=== PATIENT | male | born 1965 | race Caucasian/White ===

== ENCOUNTER 2020-02-19 12:59 | Emergency (ER) | payer OTHER, SELFPAY ==
[2020-02-19] VITALS (20 sets, daily range): BP systolic 142–190; BP diastolic 97–111; PULSE 70–94; RESP 5–20; TEMP 36.6; O2SAT 95–100
--- NOTE | ~2020-02-19 | XR_ITS ---
EXAMINATION: XR chest 2V DATE: 02/19/2020 13:56 INDICATION: Shortness of breath TECHNIQUE: AP and lateral views of the chest are obtained. COMPARISON: 08/11/2014 FINDINGS: The lungs are free of acute opacities. There is no pleural effusion or pneumothorax. The ca rdiomediastinal silhouette is normal. There is mild thoracic spondylosis. Electronic leads project in the central spinal canal of the lower thoracic spine. IMPRESSION: 1. No acute cardiopulmonary abnormality. Reviewed, dictated and finalized at location B.
--- NOTE | 2020-02-19 13:20 | ECG_ITS ---
Measurements Intervals [place] Rate: 85 P: 12 MD: 135 QRS: 58 QRSD: 94 T: 47 QT: 339 QTc: 404 Interpretive Statements SINUS RHYTHM BASELINE ARTIFACT- I, II, III, AVR, AVL, AVF, V1-V6 BORDERLINE ECG Electronically Signed On 02-19-2020 15:50:24 CDT by Armond Kruger D.O.
[2020-02-19 13:33] LABS: Basophils Percent Auto 0.7 % (0.2-1.2); Eosinophils Absolute Auto 0.2 K/mm3 (0-0.3); Eosinophils Percent Auto 3.4 % (0-4.4); Hematocrit 44.6 % (42.0-52.0); Hemoglobin 16.2 g/dL (14.0-18.0); Immature Granulocyte Absolute 0.02 K/mm3 (0.00-0.031); Immature Granulocyte Percent A 0.4 % (0-0.5); Lymphocytes Absolute Auto 1.52 K/mm3 (0.9-3.2); Lymphocytes Percent Auto 27.1 % (18.3-44.2); Mean Corpuscular HGB Conc 36.3 g/dl (32-36); Mean Corpuscular Hemoglobin 33.8 pg (26-34); Mean Corpuscular Volume 92.9 fl (80-100); Monocytes Absolute Auto 0.5 K/mm3 (0.1-0.6); Monocytes Percent Auto 9.5 % (2.6-8.5); Neutrophils Absolute Auto 3.3 K/mm3 (1.3-6.7); Neutrophils Percent Auto 58.9 % (45.5-73.1); Platelet Count Result 223 k/mm3 (150-375); Red Cell Distribution Width 12.4 % (11.5-14.5); White Blood Count 5.6 K/mm3 (4.5-10.0)
[2020-02-19 13:48] LABS: Anion Gap 7 mmol/L (8-16); Blood Urea Nitrogen 16 mg/dL (9-20); Calcium 9.2 mg/dL (8.4-10.2); Carbon Dioxide 22 mmol/L (22-30); Chloride 108 mmol/L (98-107); Estimated CRCL calculation 119 ml/min; Estimated Glomerular Filt Rate > 60; Glucose 104 mg/dL (75-110); Potassium 3.8 mmol/L (3.4-5.0); Sodium 137 mmol/L (137-145)
--- NOTE | 2020-02-19 14:10 | ED.SOB ---
HPI - SOB/Dyspnea General Chief Complaint: Shortness of Breath/Dyspnea Stated Complaint: Trouble breathing Time Seen by Provider: 02/19/20 13:44 Source: patient Mode of arrival: ambulatory Limitations: no limitations History of Present Illness HPI Narrative: This patietn is a 55 year old male with history of asthma and hypertension who presents for evaluation of shortness of breath. He states he has been having difficulty breathing since yesterday. He states he feels like he can not get a full breath. He has been using his rescue inhaler without relief. He has a mild nonproductive cough. He also has mild dizziness. He denies chest pain, fever, chills, nausea or vomiting. Related Data Home Medications Medication Instructions Recorded Confirmed albuterol sulfate INHALATION 02/19/20 fluticasone propion-salmeterol inh INHALATION 02/19/20 hydrochlorothiazide 02/19/20 levetiracetam PO 02/19/20 losartan 02/19/20 montelukast mg 02/19/20 omeprazole 02/19/20 simvastatin mg 02/19/20 Allergies Allergy/AdvReac Type Severity Reaction Status Date / Time cephalexin Allergy Severe Nausea and Verified 02/19/20 13:38 Vomiting diphenhydramine AdvReac Unknown Unknown Unverified 02/19/20 13:38 milk and eggs tested Allergy Unknown Unknown Uncoded 02/19/20 13:38 positive. but patient eats them Review of Systems Review of Systems: All systems reviewed & are unremarkable except as noted in HPI and below Constitutional: Constitutional: Denies chills and Denies fever(s) Cardiovascular: Cardiovascular: Denies chest pain and Denies radiating jaw, neck or arm pain Respiratory: Respiratory: Reports cough, Reports dyspnea and Denies wheezing Gastrointestinal: Gastrointestinal: Denies abdominal pain, Denies diarrhea, Denies nausea and Denies vomiting Genitourinary: Genitourinary: Denies hematuria and Denies oliguria [facility] Past Medical History Medical History (Updated 02/19/20 @ 16:37 by Carmela Valdez MD) Asthma Hyperlipidemia Hypertension Surgical History Surgical History (Updated 02/19/20 @ 14:15 by Carmela Valdez MD) No significant past surgical history Social History Social History (Updated 02/19/20 @ 14:15 by Carmela Valdez MD) Alcohol intake: current Substance use type: marijuana Exam Const: General: alert Nutritional Appearance: obese Orientation/consciousness: patient oriented x3 HENMT: Head: normocephalic and atraumatic Face and sinus: face symmetric Mouth: Yes Normal oral and palatal mucosa present and Yes lip normal Eyes: Pupils: Equal, round and reactive pupils present EOM: EOMs intact bilaterally Chest: Chest palpation & inspection: normal inspection of the chest Resp: Effort & Inspection: not labored, no retractions, tachypneic and no use of accessory muscles Auscultation: clear to auscultation bilaterally, no rales and no wheezes Other: able to speak in complete sentences Cardio: Rate: regular rate Rhythm: regular rhythm Heart sounds: no murmurs GI: Inspection: distended GI Palp: Yes Soft to palpation, No Tenderness to palpation present (GI) and No Guarding due to palpation present (GI) Skin: General skin exam: normal color Rashes: no rashes Neuro: General: patient oriented x3 and moves all extremities Course Reevaluation(s) Reevaluation #1: Patient states he feels much better. I Discussed evaluation was unremarkable. He may have been having a panic attack Date: 02/19/20 Time: 16:35 Vital Signs Vital signs: Vital Signs Pulse Rate 86 02/19/20 13:19 Respiratory Rate 13 02/19/20 13:19 Pulse Oximetry 98 02/19/20 13:19 Temperature 97.9 F 02/19/20 13:30 Pulse Rate 73 02/19/20 16:15 Respiratory Rate 11 L 02/19/20 16:00 Blood Pressure 142/98 H 02/19/20 15:41 Pulse Oximetry 96 02/19/20 16:15 MDM - SOB/Dyspnea Lab Data Attestation: I reviewed the patient's lab results. Result diagrams: 02/19/20 13:2
[2020-02-19 14:38] LABS: Alveolar/Arterial O2 Gradient 17.3 mmHg; Base Excess ABG 1.6 mEq/l (+/-2.0); Carboxyhemoglobin 0.7 % THb (0-2.0); Fractional Inspired Oxygen 21 %; HCO3 ABG 21.9 mEq/l (22.0-26.0); Methemoglobin ABG 0.3 %THb (0-1.5); Modified Allen's Test Pass; Oxygen Content ABG 22.7 %vol (16.0-22.0); Oxygen Saturation ABG 98.4 % (95.0-100.0); Oxyhemoglobin 97.2 % THb (90.0-100.0); PCO2 ABG 25.2 mmHg (35.0-45.0); PO2 ABG 102.3 mmHg (80.0-100.0); PO2 FiO2 Ratio Arterial Blood 4.87 %; Reduced Hemoglobin 1.8 %THb (0-5.0); Site Drawn LEFT RADIAL; Total Hemoglobin 16.6 g/dL (12.0-18.0); pH ABG 7.557 (7.350-7.450)
[2020-02-19 14:39] LABS: Device ROOM AIR
--- NOTE | 2020-02-19 15:56 | PC.NURSE ---
called ben at lab to add on ddimer, pt/ptt and baseline
[2020-02-19 16:09] LABS: Prothrombin Time 12.4 Seconds (11.1-14.7)
[2020-02-19 16:10] LABS: Partial Thromboplastin Time 27.9 SECONDS (22.3-36.8)
[2020-02-19 16:12] LABS: D Dimer 0.32 ug/mL (<0.48)
[2020-02-19 16:27] LABS: Troponin I < 0.012 ng/mL (0.000-0.034)
== END 2020-02-19 16:53 | disposition home or self-care (01) ==
PROVIDERS: Emergency Medicine; Emergency Provider General Practice; PCP Family Medicine
DX: J45.909 Unspecified asthma, uncomplicated (principal); I10 Essential (primary) hypertension; E78.5 Hyperlipidemia, unspecified; R94.31 Abnormal electrocardiogram [ECG] [EKG]
CPT/HCPCS: 36415; 36600; 71046; 80048; 82375; 82805; 83050; 84484; 85025; 85380; 85610; 85730; 93005; 99284

== ENCOUNTER 2020-05-06 12:30 | Outpatient (CLI) | payer OTHER, SELFPAY ==
--- NOTE | 2020-05-06 | ECHO_ITS ---
Patient Info Name: Lane Ge Age: 55 years : 1965 Gender: Male Ht: 72 in Wt: 300 lbs BSA: 2.69 m2 HR: 95 bpm BP: 140 / 81 mmHg Heart Rhythm: Sinus Arrhythmia, Sinus Rhythm Technical Quality: Good Exam Date: 05/06/2020 12:57 PM Exam Location: [facility] Patient Status: Outpatient Admit Date: 05/06/2020 Staff Ordering Physician: PHYSICIAN NOT ON STAFF, NONSTAFF Hvac Estimator: Giuliano Lynne RDCS Attending Provider: PHYSICIAN NOT ON STAFF, NONSTAFF Exam Type: CA echo doppler color flow Study Info Indications R06.00 - Dyspnea, unspecified Complete two-dimensional, color flow and Doppler transthoracic echocardiogram is performed. Strain analysis performed. History/Risk Factors Dyspnea, HTN, family hx of CAD, palpitations. Summary 1. Complete two-dimensional, color flow and Doppler transthoracic echocardiogram is performed. 2. Strain analysis performed. 3. Left ventricular chamber dimension is normal. 4. Left ventricular systolic function is normal, estimated at 65-70%. 5. There is moderately increased left ventricular wall thickness. 6. The left ventricular diastolic function is grade I diastolic dysfunction. 7. Global longitudinal strain is abnormal at -14 %. 8. There is mild mitral valve regurgitation. Left Ventricle Left ventricular chamber dimension is normal. Left ventricular systolic function is normal, estimated at 65-70%. There is moderately increased left ventricular wall thickness. The left ventricular diastolic function is grade I diastolic dysfunction. Global longitudinal strain is abnormal at -14 %. Right Ventricle Right ventricular chamber dimension is normal. Right ventricular systolic function is normal. Left Atria Left atrial chamber dimension is normal. Right Atria Right atrial chamber dimension is normal. Atrial Septum Intact interatrial septum visualized by color flow imaging. Aortic Valve The aortic valve is trileaflet. There is mild aortic valve sclerosis. There is no aortic valve stenosis. There is trace aortic valve regurgitation. Pulmonic Valve The pulmonic valve is normal. There is no pulmonic valve stenosis. There is trace pulmonic regurgitation. Mitral Valve The mitral valve has normal leaflets. There is no mitral valve stenosis. There is mild mitral valve regurgitation. Tricuspid Valve The tricuspid valve leaflets are normal. There is no significant tricuspid valve stenosis. There is trace tricuspid valve regurgitation. Pericardium/Pleural The pericardium appears normal. There is no pericardial effusion. Inferior Vena Cava Normal inferior vena cava with >50% collapse upon inspiration consistent with normal right atrial pressure, 5 mmHg. Aorta The aortic root size at the sinus of Valsalva is normal. Left Ventricular Outflow Tract Name Value Normal LVOT 2D LVOT Diameter 1.9 cm LVOT Doppler LVOT Peak Gradient 6 mmHg LVOT Mean Gradient 4 mmHg LVOT VTI 22 cm LVOT VTI/AV VTI Ratio
== END 2020-05-06 12:31 | disposition home or self-care (01) ==
LOC: ANHCARD 12:32
PROVIDERS: PCP Family Medicine
DX: R06.00 Dyspnea, unspecified (principal)
CPT/HCPCS: 93306

== ENCOUNTER 2020-05-11 21:07 | Emergency (ER) | payer OTHER, SELFPAY ==
[2020-05-11] VITALS (8 sets, daily range): BP systolic 148–188; BP diastolic 78–112; PULSE 70–106; RESP 12–19; TEMP 36.8; O2SAT 96–99
--- NOTE | ~2020-05-11 | XR_ITS ---
EXAMINATION: XR chest 1V portable DATE: 05/11/2020 22:09 INDICATION: Shortness of breath, diarrhea, runny nose and 2 days of cough. TECHNIQUE: frontal view of the chest was obtained. COMPARISON: Chest radiograph dated 02/19/2020 FINDINGS: The lungs remain clear with no focal airspace opacities, pulmonary edema, pleural effusion or pneumot horax. The cardiomediastinal silhouette is normal. Final stimulator leads project over the lower thor ic central canal. IMPRESSION: 1. No acute cardiopulmonary disease. Reviewed, dictated and finalized at location A. ICIDE SPRAYER
--- NOTE | 2020-05-11 21:21 | ECG_ITS ---
Measurements Intervals [place] Rate: 91 P: 56 GA: 145 QRS: 54 QRSD: 92 T: 55 QT: 328 QTc: 405 Interpretive Statements SINUS RHYTHM NORMAL ECG Electronically Signed On 05-12-2020 7:00:53 POWER MANAGER by Armond Kruger D.O.
[2020-05-11 21:33] LABS: Basophils Absolute Auto 0.1 K/mm3 (0.0-0.1); Basophils Percent Auto 0.8 % (0.2-1.2); Eosinophils Absolute Auto 0.2 K/mm3 (0-0.3); Eosinophils Percent Auto 2.3 % (0-4.4); Hematocrit 45.9 % (42.0-52.0); Hemoglobin 16.4 g/dL (14.0-18.0); Immature Granulocyte Absolute 0.01 K/mm3 (0.00-0.031); Immature Granulocyte Percent A 0.2 % (0-0.5); Lymphocytes Absolute Auto 1.72 K/mm3 (0.9-3.2); Lymphocytes Percent Auto 26.9 % (18.3-44.2); Mean Corpuscular HGB Conc 35.7 g/dl (32-36); Mean Corpuscular Hemoglobin 33.6 pg (26-34); Mean Corpuscular Volume 94.1 fl (80-100); Mean Platelet Volume 9.9 fl (7.4-10.4); Monocytes Absolute Auto 0.7 K/mm3 (0.1-0.6); Monocytes Percent Auto 11.4 % (2.6-8.5); Neutrophils Absolute Auto 3.7 K/mm3 (1.3-6.7); Neutrophils Percent Auto 58.4 % (45.5-73.1); Platelet Count Result 238 k/mm3 (150-375); Red Blood Count 4.88 M/mm3 (4.6-6.20); Red Cell Distribution Width 12.5 % (11.5-14.5); White Blood Count 6.4 K/mm3 (4.5-10.0)
--- NOTE | 2020-05-11 21:37 | ED.GENADULT ---
HPI - General Adult General Chief complaint: Shortness of Breath/Dyspnea Stated complaint: SOB Time Seen by Provider: 05/11/20 21:10 Source: patient History of Present Illness HPI narrative: Patient is a 55 y/o male complaining of moderate SOB since yesterday. There no alleviating or exacerbating factor. He has some cough and diarrhea. He has no fever. He states that he was exposed to someone with COVID recently. Related Data Home Medications Medication Instructions Recorded Confirmed albuterol sulfate INHALATION 02/19/20 fluticasone propion-salmeterol inh INHALATION 02/19/20 hydrochlorothiazide 02/19/20 levetiracetam PO 02/19/20 losartan 02/19/20 montelukast mg 02/19/20 omeprazole 02/19/20 simvastatin mg 02/19/20 Allergies Allergy/AdvReac Type Severity Reaction Status Date / Time cephalexin Allergy Severe Nausea and Verified 05/11/20 21:19 Vomiting diphenhydramine AdvReac Unknown Unknown Unverified 05/11/20 21:19 milk and eggs tested Allergy Unknown Unknown Uncoded 05/11/20 21:19 positive. but patient eats them Review of Systems Constitutional: Constitutional: Denies chills, Denies fever(s), Denies headache(s) and Denies weakness Eyes: Eyes: Denies blurry vision ENT: Denies headache(s) and Denies neck pain Cardiovascular: Cardiovascular: Denies chest pain and Reports dyspnea Respiratory: Respiratory: Reports cough and Reports dyspnea Gastrointestinal: Gastrointestinal: Denies abdominal pain, Reports diarrhea, Denies nausea and Denies vomiting Genitourinary: Genitourinary: Denies hematuria and Denies dysuria Musculoskeletal: Musculoskeletal: Denies back pain and Denies neck pain Neurologic: Denies headache(s) and Denies weakness PMFSH Past Medical History Medical History Asthma Hyperlipidemia Hypertension Surgical History Surgical History No significant past surgical history Social History Social History Alcohol intake: current Substance use type: marijuana Gender identity (if verbalized by the patient): Male Sexual Orientation (if Verbalized by the Patient): Straight or Heterosexual Exam Const: General: no acute distress and well developed Orientation/consciousness: oriented to person, oriented to place, oriented to time and patient oriented x3 HENMT: Head: normocephalic Ears: external ears normal General nose exam: Normal external nose present Eyes: General: appearance normal, both eyes and all related structures Conjunctivae: conjunctivae normal Neck: Neck: normal visual inspection and full ROM Chest: Chest palpation & inspection: normal inspection of the chest and no tenderness Resp: Effort & Inspection: normal respiratory effort Auscultation: clear to auscultation bilaterally Cardio: Rate: tachycardic Rhythm: regular rhythm GI: GI Palp: No abdominal tenderness and Yes Soft to palpation Skin: General skin exam: normal color and turgor normal Neuro: General: oriented to person, oriented to place, oriented to time and patient oriented x3 Cognition (Neuro): normal cognition Extrem: General: normal to inspection, full ROM and no pedal edema Psych: Appearance: grossly normal Mental Status: mental status grossly normal Affect: Anxious affect present Course Vital Signs Vital signs: Vital Signs Pulse Rate 101 H 05/11/20 21:13 Respiratory Rate 12 05/11/20 21:13 Pulse Oximetry 97 05/11/20 21:13 Temperature 36.8 C 05/11/20 21:17 Pulse Rate 70 05/11/20 22:57 Respiratory Rate 18 05/11/20 22:57 Blood Pressure 148/78 H 05/11/20 22:57 Pulse Oximetry 99 05/11/20 22:57 Medical Decision Making Vital Signs Vital Signs: Vital Signs Pulse Rate 101 H 05/11/20 21:13 Respiratory Rate 12 05/11/20 21:13 Pulse Oximetry 97 05/11/20 21:13 Temperature
[2020-05-11] MEDS: LORazepam (*CRX) 1 MG TABLET PO (22:19)
[2020-05-11 22:40] LABS: Alanine Aminotransferase 41 U/L (4-50); Albumin Level 4.2 g/dL (3.5-5.1); Alkaline Phosphatase 82 U/L (38-126); Anion Gap 9 mmol/L (8-16); Aspartate Amino Transferase 39 U/L (17-59); Bilirubin,Total 0.5 mg/dL (0.2-1.3); Blood Urea Nitrogen 17 mg/dL (9-20); Calcium 9.9 mg/dL (8.4-10.2); Carbon Dioxide 26 mmol/L (22-30); Chloride 103 mmol/L (98-107); Estimated CRCL calculation 119 ml/min; Estimated Glomerular Filt Rate > 60; Glucose 109 mg/dL (75-110); Potassium 3.7 mmol/L (3.4-5.0); Sodium 138 mmol/L (137-145)
[2020-05-11 22:52] LABS: NT Pro B Type Natriuretic Pept 133 PG/ML (5-100); Troponin I < 0.012 ng/mL (0.000-0.034)
[2020-05-12 19:16] LABS: SARS-CoV-2 RNA PCR Negative
== END 2020-05-11 23:01 | disposition home or self-care (01) ==
PROVIDERS: Emergency Provider Emergency Medicine; PCP Family Medicine
DX: R06.02 Shortness of breath (principal); I10 Essential (primary) hypertension; F41.9 Anxiety disorder, unspecified; Z20.828 Contact with and (suspected) exposure to other viral communicable diseases; E78.5 Hyperlipidemia, unspecified; J45.909 Unspecified asthma, uncomplicated
CPT/HCPCS: 36415; 71045; 80053; 83880; 84484; 85025; 87635; 93005; 99284; A9270; C9803; U0003

== ENCOUNTER 2020-05-24 01:13 | Emergency (ER) | payer OTHER, SELFPAY ==
--- NOTE | ~2020-05-24 | XR_ITS ---
EXAMINATION: XR chest 1V portable DATE: 05/24/2020 02:09 INDICATION: Dyspnea. TECHNIQUE: frontal view of the chest was obtained. COMPARISON: Chest radiograph dated 05/11/2020 FINDINGS: The lungs remain clear with no focal airspace opacities, pulmonary edema, pleural effusion or pneumot horax. The cardiomediastinal silhouette is normal. Spinal stimulator leads project over the lower tho racic central canal. IMPRESSION: 1. No acute cardiopulmonary disease. Reviewed, dictated and finalized at location A. LIFE ENFORCEMENT MAJOR
[2020-05-24 01:16] VITALS: BP 159/97; PULSE 96; RESP 16; TEMP 36.3; O2SAT 99
--- NOTE | 2020-05-24 01:19 | ED.SOB ---
HPI - SOB/Dyspnea General Chief Complaint: Shortness of Breath/Dyspnea Stated Complaint: SOB Time Seen by Provider: 05/24/20 01:19 Source: patient Mode of arrival: ambulatory Limitations: no limitations History of Present Illness HPI Narrative: Patient is a 55-year-old with a history of obstructive sleep apnea, hypertension, asthma who presents for evaluation of shortness of breath. Patient states he has had increased shortness of breath over the past several weeks. He states it feels consistent with his asthma and like he has fluid at the top of his lungs, but patient states he has had multiple visits to this emergency department as well as other facilities with negative work-up and was discharged home. He denies any chest pain. He denies any leg swelling or calf pain. He denies any history of blood clot. He denies fever or chills. Patient states he feels his symptoms are worse when he is laying flat. Patient has a history of obstructive sleep apnea but does not have a CPAP. He tried a nebulizer treatment at home without much improvement in his symptoms. Patient states his anxiety does often make him feel short of breath but he is taking buspirone and states he does not feel anxious at this moment. Patient with recent negative Covid swab. Related Data Home Medications Medication Instructions Recorded Confirmed albuterol sulfate INHALATION 02/19/20 fluticasone propion-salmeterol inh INHALATION 02/19/20 hydrochlorothiazide 02/19/20 levetiracetam PO 02/19/20 losartan 02/19/20 montelukast mg 02/19/20 omeprazole 02/19/20 simvastatin mg 02/19/20 Allergies Allergy/AdvReac Type Severity Reaction Status Date / Time cephalexin Allergy Severe Nausea and Verified 05/24/20 02:23 Vomiting diphenhydramine AdvReac Unknown Unknown Verified 05/24/20 02:23 milk and eggs tested Allergy Unknown Unknown Uncoded 05/11/20 21:19 positive. but patient eats them Review of Systems Review of Systems: Narrative: CONSTITUTIONAL: Denies fever, chills, or sweats. EYES: Denies visual changes, redness, or discharge. ENT: Denies rhinorrhea, congestion, sore throat, or otalgia. CARDIOVASCULAR: Denies chest pain, palpitations, or edema. RESPIRATORY: Reports dry cough and shortness of breath GASTROINTESTINAL: Denies abdominal pain, nausea, vomiting, or diarrhea. GENITOURINARY: Denies dysuria or hematuria. SKIN: Denies rash or itching. MUSCULOSKELETAL: Denies back pain, joint pain, or myalgia. NEUROLOGIC: Denies headache, numbness, or weakness. PSYCHIATRIC: Reports anxiety PMFSH Past Medical History Medical History (Updated 05/24/20 @ 02:47 by Valery Murillo MD) Asthma Hyperlipidemia Hypertension Obstructive sleep apnea Surgical History Surgical History No significant past surgical history Social History Social History Alcohol intake: current Substance use type: marijuana Gender identity (if verbalized by the patient): Male Exam Narrative: Exam Narrative: GENERAL: Awake, alert, conversant, anxious appearing HEAD: Normocephalic, atraumatic. EYES: PERRLA and EOMI. ENT: Nares clear, no rhinorrhea or epistaxis. Mucous membranes moist. NECK: Supple. CHEST: No respiratory distress, breathing even and non labored, no crackles, no wheezing, full aeration at the bases, patient able to speak in full sentences without difficulty. No chest wall tenderness. HEART: Regular rate, sinus rhythm ABDOMEN:Non distended, non tender EXTREMITIES: Normal range of motion. No edema. SKIN: Warm, dry, no rash. NEURO:No focal deficits. Alert and oriented x3 Course Vital Signs Vital signs: Vital Signs Temperature 36.3 C L 05/24/20 01:16 Pulse Rate 96 05/24/20 01:16 Respiratory Rate 16 05/24/20 01:16 Blood Pressure 159/97 H 05/24/20 01:16 Pulse Oximetry 99 05/24/20 01:16 Temperature 36.3 C L 1
--- NOTE | 2020-05-24 01:51 | ECG_ITS ---
Measurements Intervals [place] Rate: 79 P: 15 SD: 128 QRS: 56 QRSD: 102 T: 50 QT: 352 QTc: 405 Interpretive Statements SINUS RHYTHM NORMAL ECG Electronically Signed On 05-24-2020 9:25:53 PROTECTION CONSULTANT by Armond Kruger D.O.
[2020-05-24 02:32] LABS: Basophils Percent Auto 0.6 % (0.2-1.2); Eosinophils Absolute Auto 0.1 K/mm3 (0-0.3); Eosinophils Percent Auto 1.9 % (0-4.4); Hematocrit 45.7 % (42.0-52.0); Hemoglobin 16.8 g/dL (14.0-18.0); Immature Granulocyte Absolute 0.02 K/mm3 (0.00-0.031); Immature Granulocyte Percent A 0.3 % (0-0.5); Lymphocytes Absolute Auto 1.51 K/mm3 (0.9-3.2); Lymphocytes Percent Auto 21.5 % (18.3-44.2); Mean Corpuscular HGB Conc 36.8 g/dl (32-36); Mean Corpuscular Hemoglobin 34.1 pg (26-34); Mean Corpuscular Volume 92.7 fl (80-100); Mean Platelet Volume 9.9 fl (7.4-10.4); Monocytes Absolute Auto 0.7 K/mm3 (0.1-0.6); Monocytes Percent Auto 9.3 % (2.6-8.5); Neutrophils Absolute Auto 4.7 K/mm3 (1.3-6.7); Neutrophils Percent Auto 66.4 % (45.5-73.1); Platelet Count Result 248 k/mm3 (150-375); Red Blood Count 4.93 M/mm3 (4.6-6.20); Red Cell Distribution Width 12.6 % (11.5-14.5)
[2020-05-24 02:37] LABS: INR 0.9; Prothrombin Time 12.6 Seconds (11.1-14.7)
[2020-05-24 02:38] LABS: Partial Thromboplastin Time 28.5 SECONDS (22.3-36.8)
[2020-05-24 02:40] LABS: D Dimer 0.41 ug/mL (<0.48)
[2020-05-24] MEDS: LORazepam (*CRX) 0.5 MG TABLET PO (02:40)
[2020-05-24 02:50] VITALS: PULSE 90; RESP 20
[2020-05-24] MEDS: IPRATROPIUM BR 0.02% INH SOLN 0.5 MG/2.5 ML VIAL INHALATION (03:00)
[2020-05-24] MEDS: ALBUTEROL SULFATE NEB 2.5 MG/0.5 ML INH 5 MG INHALATION (03:00)
[2020-05-24 03:02] VITALS: PULSE 92; RESP 20
[2020-05-24 03:24] LABS: Alveolar/Arterial O2 Gradient 25.6 mmHg; Base Excess ABG 2.5 mEq/l (+/-2.0); Carboxyhemoglobin 0.8 % THb (0-2.0); Fractional Inspired Oxygen 21 %; HCO3 ABG 22.3 mEq/l (22.0-26.0); Methemoglobin ABG 0.3 %THb (0-1.5); Oxygen Content ABG 23.2 %vol (16.0-22.0); Oxygen Saturation ABG 98.2 % (95.0-100.0); PCO2 ABG 24.3 mmHg (35.0-45.0); PO2 FiO2 Ratio Arterial Blood 4.52 %; Reduced Hemoglobin 1.9 %THb (0-5.0)
[2020-05-24 03:25] LABS: Device ROOM AIR; Modified Allen's Test Pass; Site Drawn RIGHT RADIAL
[2020-05-24 04:12] VITALS: BP 155/104; PULSE 91; RESP 16; O2SAT 97
[2020-05-24 04:33] LABS: Anion Gap 7 mmol/L (8-16); Blood Urea Nitrogen 17 mg/dL (9-20); Calcium 9.4 mg/dL (8.4-10.2); Carbon Dioxide 26 mmol/L (22-30); Chloride 108 mmol/L (98-107); Estimated CRCL calculation 99 ml/min; Estimated Glomerular Filt Rate > 60; Glucose 117 mg/dL (75-110); Potassium 3.5 mmol/L (3.4-5.0); Sodium 141 mmol/L (137-145)
[2020-05-24 04:45] LABS: NT Pro B Type Natriuretic Pept 268 PG/ML (5-100); Troponin I < 0.012 ng/mL (0.000-0.034)
[2020-05-24 05:16] VITALS: BP 154/97; PULSE 93; RESP 13; O2SAT 99
== END 2020-05-24 05:21 | disposition home or self-care (01) ==
PROVIDERS: Emergency Provider Emergency Medicine; PCP Family Medicine
DX: R06.00 Dyspnea, unspecified (principal); J45.909 Unspecified asthma, uncomplicated; G47.33 Obstructive sleep apnea (adult) (pediatric); I10 Essential (primary) hypertension; F41.9 Anxiety disorder, unspecified; E78.5 Hyperlipidemia, unspecified
CPT/HCPCS: 36415; 36600; 71045; 80048; 82375; 82805; 83050; 83880; 84484; 85025; 85380; 85610; 85730; 93005; 94640; 99284; A9270

== ENCOUNTER 2020-05-29 09:50 | Outpatient (CLI) | payer OTHER, SELFPAY ==
--- NOTE | 2020-05-29 | EST_ITS ---
Patient Info Name: Lane Ge Age: 55 years : 1965 Gender: Male Ht: 72 in Wt: 305 lbs BSA: 2.71 m2 Exam Date: 05/29/2020 10:57 AM Exam Location: [facility] Stress Patient Status: Outpatient Admit Date: 05/29/2020 Staff Ordering Physician: LEAH ESCOBAR MD Attending Provider: LEAH ESCOBAR MD Exercise Technologist: Cintia Randhawa CT Exercise Physician: Armond Kruger DO Exam Type: CA stress ky w NM Study Info Indications R06.09 - Other forms of dyspnea A regadenoson stress test was performed. Summary 1. 1. Abnormal lexiscan stress test for ischemic ST changes by ECG criteria. 2. 2. Stable hemodynamics throughout the test. 3. 3. Nuclear scan to follow and will be reported separately. Please correlate with it. 4. 4. Patient informed of the above results. Protocol: Lexiscan Stress ECG Details Stage: REST Duration (min): 6 min : 1 sec HR (bpm): 83 SBP (mmHg): 146 DBP (mmHg): 95 Stage: STAGE 1 Duration (min): 0 min : 59 sec HR (bpm): 93 SBP (mmHg): 135 DBP (mmHg): 97 Stage: RECOVERY Duration (min): 1 min : 0 sec HR (bpm): 112 SBP (mmHg): 135 DBP (mmHg): 97 Stage: RECOVERY Duration (min): 2 min : 0 sec HR (bpm): 108 SBP (mmHg): 135 DBP (mmHg): 97 Stage: RECOVERY Duration (min): 3 min : 0 sec HR (bpm): 104 SBP (mmHg): 123 DBP (mmHg): 93 Stage: RECOVERY Duration (min): 4 min : 0 sec HR (bpm): 105 SBP (mmHg): 118 DBP (mmHg): 89 Stage: RECOVERY Duration (min): 4 min : 49 sec HR (bpm): 110 SBP (mmHg): 136 DBP (mmHg): 89 Rest HR: 83 bpm Peak HR: 117 bpm Rest Sys BP: 146 mmHg Peak Sys BP: 136 mmHg Max Pred HR: 167 bpm % Max Pred HR: 70 % Target HR: 142 bpm Max RPP: 15,912 bpm*mmHg Termination Reason: Completed protocol Cardiac Symptoms: Shortness of breath Total Time: 1 min : 0 sec Rest [place] BP: 95 mmHg Peak [place] BP: 89 mmHg Total Dose: 0.4 mg Resting ECG Sinus rhythm, borderline T wave in high lateral leads. Stress ECG [address] depression in II, III, avF, V5-V6. Arrhythmias None. Report Signatures
--- NOTE | ~2020-05-29 | NM_ITS ---
EXAMINATION: NM [place] stress w perfusion DATE: 05/29/2020 12:52 INDICATION: Dyspnea on exertion. TECHNIQUE: Rest images were obtained following intravenous administration of 11.9 mCi Tc99m tetrofosm in (Myoview). The patient was infused intravenously with Lexiscan (regadenoson). Then, 30.5 mCi Tc99m tetrofosmin (Myoview) was administered intravenously, and stress images were obtained. Data was vishnu nstructed into short axis and horizontal and vertical long axis SPECT images. Gated SPECT images were also obtained. COMPARISON: None. FINDINGS: There is no definite reversible or fixed perfusion abnormality to suggest ischemia or infar ction. There is no segmental wall motion abnormality. Left ventricular ejection fraction measures 7 0%. IMPRESSION: 1. No definite ischemia or infarct. 2. Normal left ventricular ejection fraction measuring 70%. Reviewed, dictated and finalized at location A. ER COVERSTITCH
== END 2020-05-29 09:51 | disposition home or self-care (01) ==
LOC: ANHCARD 09:59
PROVIDERS: PCP Family Medicine
DX: R06.00 Dyspnea, unspecified (principal)
CPT/HCPCS: 78452; 93017; A9502; J2785

== ENCOUNTER 2020-06-03 12:34 | Outpatient (CLI) | payer OTHER, SELFPAY ==
--- NOTE | 2020-06-08 13:01 | WPDPFTINT ---
PFT Interpretation PFT Interpretation: Full pulmonary function testing 06/03/2020 1. Flows and volumes appear satisfactory. 2. Following inhaled bronchodilator, there is little objective change. 3. Diffusing capacity appears normal. This appears to be normal pulmonary function testing. Trever Sánchez MD MScFACP FCCP
== END 2020-06-03 12:35 | disposition home or self-care (01) ==
PROVIDERS: PCP Family Medicine
DX: J45.40 Moderate persistent asthma, uncomplicated (principal)
CPT/HCPCS: 94060; 94726; 94729

== ENCOUNTER 2020-09-03 08:21 | Emergency (ER) | payer OTHER, SELFPAY ==
[2020-09-03] VITALS (19 sets, daily range): BP systolic 105–141; BP diastolic 78–112; PULSE 77–94; RESP 6–24; TEMP 36.9; O2SAT 97–98
--- NOTE | ~2020-09-03 | XR_ITS ---
EXAMINATION: XR chest 1V portable 09/03/2020 10:02 INDICATION: Cough with asthma. Shortness of breath. PROCEDURE: 2 view chest COMPARISON: Comparison to multiple prior studies sequentially, with oldest reviewed study dated 07/2014. FINDINGS: The lungs are clear. The cardiomediastinal silhouette is within normal limits. There are no pleural effusions. There is no pneumothorax suspected. Stable appearance to spinal stimulator le ads. IMPRESSION: 1: NO ACUTE CARDIOPULMONARY DISEASE. Reviewed, dictated and finalized at location A.
--- NOTE | 2020-09-03 08:41 | ECG_ITS ---
Measurements Intervals [place] Rate: 85 P: 8 [place]: 155 QRS: 20 QRSD: 101 T: 3 QT: 343 QTc: 409 Interpretive Statements SINUS RHYTHM ATRIAL PREMATURE COMPLEXES INFERIOR INFARCT, AGE INDETERMINATE BASELINE ARTIFACT- II, III, AVR, AVL,A VF ABNORMAL ECG Electronically Signed On 09-03-2020 9:31:18 CDT by Armond Kruger D.O.
--- NOTE | 2020-09-03 08:43 | ED.GENADULT ---
HPI - General Adult General Chief complaint: Shortness of Breath/Dyspnea Stated complaint: SOB Time Seen by Provider: 09/03/20 08:25 Source: RN notes reviewed History of Present Illness HPI narrative: Patient presents emergency department from home for shortness of breath. Patient states symptoms began approximately 5 hours ago. He states like he cannot take a deep breath patient states he does have a history of asthma and has an inhaler and is followed by pulmonary states he is also been told shortness of breath is contributed anxiety in the past he denies any fevers or chills chest pain abdominal pain nausea vomiting or any other symptoms Related Data Home Medications Medication Instructions Recorded Confirmed albuterol sulfate INHALATION 02/19/20 fluticasone propion-salmeterol inh INHALATION 02/19/20 hydrochlorothiazide 02/19/20 levetiracetam PO 02/19/20 losartan 02/19/20 montelukast mg 02/19/20 omeprazole 02/19/20 simvastatin mg 02/19/20 buspirone mg 09/03/20 lorazepam 09/03/20 tiotropium bromide [Spiriva with INHALATION 09/03/20 HandiHaler] Allergies Allergy/AdvReac Type Severity Reaction Status Date / Time cephalexin Allergy Severe Nausea and Verified 09/03/20 08:45 Vomiting diphenhydramine AdvReac Unknown Unknown Verified 09/03/20 08:45 milk and eggs tested Allergy Unknown Unknown Uncoded 09/03/20 08:45 positive. but patient eats them Review of Systems Review of Systems: Narrative: Gen.: Denies fevers or chills Eyes: Denies eye pain or visual change ENT: Denies congestion Respiratory: D see HPI CV: Denies chest pain or palpitations GI: Denies abdominal pain nausea, emesis or diarrhea Musculoskeletal: Denies back pain or muscle pain Neuro: Denies numbness, tingling, weakness or focal weakness Skin: Denies rash Except as documented, all other systems reviewed and negative [facility] Past Medical History Medical History Asthma Hyperlipidemia Hypertension Obstructive sleep apnea Surgical History Surgical History No significant past surgical history Social History Social History (Reviewed 09/03/20 @ 11:15 by SOFIA Estrada Alcohol intake: current Substance use type: marijuana Gender identity (if verbalized by the patient): Male Exam Narrative: Exam Narrative: APPEARANCE: Anxious in appearance, nontoxic, resting in bed EYES: EOMI HEENT: Normocephalic, atraumatic, OMM RESPIRATORY: No respiratory distress mild wheezing upper lung huang no rhonchi or rales CARDIOVASCULAR: Regular rate and rhythm without murmurs rubs or gallops. ABDOMINAL: Soft, nontender, nondistended, no rebound or guarding MUSCULOSKELETAl: Moves all extremities. No clubbing, cyanosis or edema. NEURO: Awake and alert. Following commands, speech normal, no focal deficits SKIN:: Warm, dry. No rashes lesions or abrasions PSYCHIATRIC: Anxious in appearance Course Course Emergency Course: Patient states he is feeling better following breathing treatments in ED Reviewed old records the patient has been seen for similar in ED in the past patient also is followed by pulmonary Walking pulse ox in ED with oxygen saturation staying in the upper 90s Discussed with patient results of workup and diagnosis. Discussed need for follow-up with primary care, proper use of medication, and reasons to return to the emergency department. Patient understands and agrees to current treatment plan Vital Signs Vital signs: Vital Signs Temperature 98.5 F 09/03/20 08:38 Pulse Rate 89 09/03/20 08:38 Respiratory Rate 24 H 09/03/20 08:38 Blood Pressure 131/91 H 09/03/20 08:38 Pulse Oximetry 98 09/03/20 08:38 Temperature 98.5 F 09/03/20 08:38 Pulse Rate 82 09/03/20 10:41 Respiratory Rate 18 09/03/20 10:41 Blood Pressure 115/79 09/03/20 10:31 Pulse Oximetry 97 09/03/20 10:3
[2020-09-03] MEDS: methylPREDNISolone SOD SUCC 125 MG VIAL IV PUSH (09:00)
[2020-09-03 09:02] LABS: Basophils Absolute Auto 0.1 K/mm3 (0.0-0.1); Basophils Percent Auto 0.8 % (0.2-1.2); Eosinophils Absolute Auto 0.1 K/mm3 (0-0.3); Eosinophils Percent Auto 1.6 % (0-4.4); Hematocrit 49.5 % (42.0-52.0); Hemoglobin 17.6 g/dL (14.0-18.0); Immature Granulocyte Absolute 0.02 K/mm3 (0.00-0.031); Immature Granulocyte Percent A 0.3 % (0-0.5); Lymphocytes Absolute Auto 2.37 K/mm3 (0.9-3.2); Lymphocytes Percent Auto 30.8 % (18.3-44.2); Mean Corpuscular HGB Conc 35.6 g/dl (32-36); Mean Corpuscular Hemoglobin 32.8 pg (26-34); Mean Corpuscular Volume 92.4 fl (80-100); Mean Platelet Volume 9.8 fl (7.4-10.4); Monocytes Absolute Auto 0.7 K/mm3 (0.1-0.6); Monocytes Percent Auto 9.6 % (2.6-8.5); Neutrophils Absolute Auto 4.4 K/mm3 (1.3-6.7); Neutrophils Percent Auto 56.9 % (45.5-73.1); Platelet Count Result 242 k/mm3 (150-375); Red Blood Count 5.36 M/mm3 (4.6-6.20); Red Cell Distribution Width 12.9 % (11.5-14.5); White Blood Count 7.7 K/mm3 (4.5-10.0)
[2020-09-03] MEDS: IPRATROPIUM BR 0.02% INH SOLN 0.5 MG/2.5 ML VIAL INHALATION ×2 (09:05→10:33)
[2020-09-03] MEDS: ALBUTEROL SULFATE NEB 2.5 MG/0.5 ML INH 5 MG INHALATION ×2 (09:05→10:33)
[2020-09-03 09:15] LABS: Anion Gap 8 mmol/L (8-16); Blood Urea Nitrogen 18 mg/dL (9-20); Calcium 9.5 mg/dL (8.4-10.2); Carbon Dioxide 23 mmol/L (22-30); Chloride 108 mmol/L (98-107); Estimated CRCL calculation 111 ml/min; Estimated Glomerular Filt Rate > 60; Glucose 96 mg/dL (75-110); Potassium 3.6 mmol/L (3.4-5.0); Sodium 139 mmol/L (137-145)
[2020-09-03 09:44] LABS: NT Pro B Type Natriuretic Pept 40 PG/ML (5-100)
[2020-09-03 09:45] LABS: Troponin I < 0.012 ng/mL (0.000-0.034)
--- NOTE | 2020-09-03 10:26 | PC.NURSE ---
Pt appears to breathe easier but when asked states nothing is helping .
[2020-09-03 11:00] LABS: D Dimer 0.27 ug/mL (<0.48)
--- NOTE | 2020-09-03 11:06 | PC.NURSE ---
Report to Thelma DIGGS RN, to continue care.
[2020-09-04 17:45] LABS: SARS-CoV-2 RNA PCR Negative
== END 2020-09-03 11:35 | disposition home or self-care (01) ==
PROVIDERS: Emergency Provider Emergency Medicine; PCP Family Medicine
DX: J45.901 Unspecified asthma with (acute) exacerbation (principal); E78.5 Hyperlipidemia, unspecified; I10 Essential (primary) hypertension; G47.33 Obstructive sleep apnea (adult) (pediatric); Z20.822 Contact with and (suspected) exposure to COVID-19
CPT/HCPCS: 36415; 71045; 80048; 83880; 84484; 85025; 85380; 93005; 94640; 96374; 99284; C9803; J2930; U0003; U0005

== ENCOUNTER 2020-11-04 03:05 | Observation (INO) | payer OTHER, SELFPAY ==
[2020-11-04] VITALS (12 sets, daily range): BP systolic 124–137; BP diastolic 71–97; PULSE 88–100; RESP 12–25; TEMP 36.1–36.3; O2SAT 97–99; BMI 41.3
--- NOTE | ~2020-11-04 | XR_ITS ---
EXAMINATION: XR chest 2V DATE: 11/04/2020 04:06 INDICATION: Shortness of breath TECHNIQUE: PA and lateral views of the chest are obtained. COMPARISON: 09/03/2020 FINDINGS: The lungs are free of acute opacities. There is no pleural effusion or pneumothorax. The ca rdiomediastinal silhouette is normal. There is mild thoracic spondylosis. Neurostimulator leads proje ct over the lower thoracic spine. IMPRESSION: 1. No acute cardiopulmonary abnormality. Reviewed, dictated and finalized at location A.
--- NOTE | 2020-11-04 03:15 | ECG_ITS ---
Measurements Intervals [place] Rate: 97 P: 55 MO: 134 QRS: 64 QRSD: 102 T: 22 QT: 335 QTc: 426 Interpretive Statements SINUS RHYTHM BORDERLINE ST-T WAVE ABNORMALITY- INFERIOR LEADS BASELINE ARTIFACT- I, II, III, AVR, AVL, AVF, V1-V6 BORDERLINE ECG Electronically Signed On 11-06-2020 9:47:19 CDT by Armond Kruger D.O.
--- NOTE | 2020-11-04 03:17 | PC.NURSE ---
Pt presents to ED with complaints of chest tightness and sob. Pt states he has treated with inhaler with no relief. Pt states I'm here every 2-3 months for the same exact thing. Pt states I fee like I can't get a good deep breath in. I feel like I'm suffocating . Pt denies pain at this time and is alert and oriented x4. Breathing is even and unlabored. Pt denies nvd, fever, and chills. EDMD presented to bedside and pt in no obvious distress at this time.
--- NOTE | 2020-11-04 03:21 | ED.SOB ---
HPI - SOB/Dyspnea General Chief Complaint: Shortness of Breath/Dyspnea Stated Complaint: sob for last 2 hours Time Seen by Provider: 11/04/20 03:19 Source: patient Mode of arrival: ambulatory Limitations: no limitations History of Present Illness HPI Narrative: Patient is a 55-year-old male complaining of shortness of breath accompanied by cough nonproductive that started tonight. Patient states that he has a history of asthma and feels like he is having a asthma attack . Patient claims that he is here every 2 to 3 months for the same complaints. Patient denies any chest pain, abdominal pain, nausea, vomiting, diaphoresis, fever or chills. Related Data Home Medications Medication Instructions Recorded Confirmed albuterol sulfate INHALATION 02/19/20 fluticasone propion-salmeterol inh INHALATION 02/19/20 hydrochlorothiazide 02/19/20 levetiracetam PO 02/19/20 losartan 02/19/20 montelukast mg 02/19/20 omeprazole 02/19/20 simvastatin mg 02/19/20 buspirone mg 09/03/20 lorazepam 09/03/20 tiotropium bromide [Spiriva with INHALATION 09/03/20 HandiHaler] Allergies Allergy/AdvReac Type Severity Reaction Status Date / Time cephalexin Allergy Severe Nausea and Verified 09/03/20 08:45 Vomiting diphenhydramine AdvReac Unknown Unknown Verified 09/03/20 08:45 milk and eggs tested Allergy Unknown Unknown Uncoded 09/03/20 08:45 positive. but patient eats them Review of Systems Review of Systems: All systems reviewed & are unremarkable except as noted in HPI and below Constitutional: Constitutional: Denies body ache(s), Denies chills, Denies excessive sweating, Denies fatigue, Denies fever(s), Denies headache(s), Denies lethargy, Denies malaise, Denies weakness and Denies weight loss Eyes: Eyes: Denies blurry vision, Denies change in vision and Denies loss of vision ENT: Denies dizziness, Denies ear discharge, Denies headache(s), Denies lip swelling, Denies epistaxis, Denies nasal congestion, Denies neck pain, Denies throat swelling and Denies tongue swelling Cardiovascular: Cardiovascular: Denies chest pain, Denies chest pain at rest, Denies chest pain with activity, Denies diaphoresis, Denies rapid heart rate, Denies edema, Denies irregular heart rhythm, Denies lightheadedness and Denies palpitations Respiratory: Respiratory: Denies chest congestion, Denies cough and Denies hemoptysis Gastrointestinal: Gastrointestinal: Denies abdominal pain, Denies melena, Denies hematochezia, Denies diarrhea, Denies nausea, Denies vomiting and Denies hematemesis Musculoskeletal: Musculoskeletal: Denies abnormal gait, Denies deformity, Denies joint swelling, Denies limited range of motion, Denies neck pain and Denies numbness Neurologic: Denies Abnormal speech present, Denies abnormal gait, Denies confusion, Denies dizziness, Denies headache(s), Denies focal weakness, Denies loss of vision, Denies numbness, Denies Other visual disturbances, Denies Sensory deficit (Neuro) and Denies weakness Psychiatric: Psychiatric: Denies confusion, Denies depression, Denies auditory hallucinations, Denies homicidal ideation and Denies suicidal ideation Endocrine: Endocrine: Denies cold intolerance, Denies excessive sweating, Denies fatigue, Denies heat intolerance and Denies palpitations Hematologic/Lymphatic: Hematologic/Lymphatic: Denies easy bleeding and Denies easy bruising Allergic/Immunologic: Allergic/Immunologic: Denies lip swelling, Denies throat swelling and Denies tongue swelling PMFSH Past Medical History Medical History Asthma Hyperlipidemia Hypertension Obstructive sleep apnea Surgical History Surgical History No significant past surgical history Social History Social History Alcohol intake: current Substance use type: marijuana Gender identit
--- NOTE | 2020-11-04 03:31 | PC.NURSE ---
Respiratory presented to bedside for treatment.
[2020-11-04 03:35] LABS: Basophils Percent Auto 0.6 % (0.2-1.2); Eosinophils Absolute Auto 0.2 K/mm3 (0-0.3); Eosinophils Percent Auto 2.9 % (0-4.4); Hematocrit 44.8 % (42.0-52.0); Hemoglobin 15.7 g/dL (14.0-18.0); Immature Granulocyte Absolute 0.02 K/mm3 (0.00-0.031); Immature Granulocyte Percent A 0.3 % (0-0.5); Lymphocytes Percent Auto 30.8 % (18.3-44.2); Mean Corpuscular Hemoglobin 33.1 pg (26-34); Mean Corpuscular Volume 94.5 fl (80-100); Mean Platelet Volume 10.3 fl (7.4-10.4); Monocytes Absolute Auto 0.6 K/mm3 (0.1-0.6); Monocytes Percent Auto 9.1 % (2.6-8.5); Neutrophils Absolute Auto 3.8 K/mm3 (1.3-6.7); Neutrophils Percent Auto 56.3 % (45.5-73.1); Platelet Count Result 226 k/mm3 (150-375); Red Blood Count 4.74 M/mm3 (4.6-6.20); Red Cell Distribution Width 13.3 % (11.5-14.5); White Blood Count 6.8 K/mm3 (4.5-10.0)
[2020-11-04 03:39] LABS: Alveolar/Arterial O2 Gradient 28.3 mmHg; Base Excess ABG 2.2 mEq/l (+/-2.0); Fractional Inspired Oxygen 21 %; HCO3 ABG 23.4 mEq/l (22.0-26.0); Oxygen Saturation ABG 97.6 % (95.0-100.0); Oxyhemoglobin 96.3 % THb (90.0-100.0); PCO2 ABG 28.3 mmHg (35.0-45.0); PO2 ABG 87.5 mmHg (80.0-100.0); PO2 FiO2 Ratio Arterial Blood 4.17 %; Total Hemoglobin 16.2 g/dL (12.0-18.0)
[2020-11-04 03:42] LABS: Device ROOM AIR; Modified Allen's Test Pass; Site Drawn RIGHT RADIAL; pH ABG 7.536 (7.350-7.450)
[2020-11-04] MEDS: ALBUTEROL SULFATE NEB 2.5 MG/0.5 ML INH 5 MG INHALATION ×3 (03:45→08:17)
[2020-11-04] MEDS: IPRATROPIUM BR 0.02% INH SOLN 0.5 MG/2.5 ML VIAL INHALATION ×3 (03:46→08:17)
[2020-11-04 03:47] LABS: INR 0.8; Prothrombin Time 12.1 Seconds (11.1-14.7)
[2020-11-04 03:48] LABS: Partial Thromboplastin Time 28.9 SECONDS (22.3-36.8)
[2020-11-04 03:50] LABS: D Dimer 0.33 ug/mL (<0.48)
[2020-11-04 04:02] LABS: NT Pro B Type Natriuretic Pept 38 pg/mL (5-100); Troponin I < 0.012 ng/mL (0.000-0.034)
[2020-11-04 04:05] LABS: Anion Gap 9 mmol/L (8-16); Blood Urea Nitrogen 18 mg/dL (9-20); Calcium 9.1 mg/dL (8.4-10.2); Carbon Dioxide 23 mmol/L (22-30); Chloride 111 mmol/L (98-107); Estimated CRCL calculation 122 ml/min; Estimated Glomerular Filt Rate > 60; Glucose 116 mg/dL (75-110); Potassium 3.9 mmol/L (3.4-5.0); Sodium 143 mmol/L (137-145)
[2020-11-04] MEDS: methylPREDNISolone SOD SUCC 125 MG VIAL IV PUSH (04:19)
--- NOTE | 2020-11-04 04:32 | PC.NURSE ---
EDMD presented to bedside to update pt on poc and all questions and concerns addressed. Pt states that he feels much better since medication administration and is now resting on cart in its lowest position with call button and personal items within reach. Pt advised to press call button for assistance.
--- NOTE | 2020-11-04 05:06 | PC.NURSE ---
Prior to administration of breathing treatment pt lungs sounds are clear and wheezing with expiration bilaterally. Pt remains alert and oriented dx4 with stable vitals and in no obvious distress at this time. Pt advised to press call button for assistance.
--- NOTE | 2020-11-04 05:31 | PC.NURSE ---
Report called to Andrea. Urbina to send pt to floor.
--- NOTE | 2020-11-04 05:57 | ADMGEN ---
This patient, Lane Ge, was admitted to [facility] Surg Room 326-01. Patient/family oriented to hospital policies and general routines including ID bracelet, bed and alarms, visiting hours, pain management, procedures, bathroom and other care routines, personal items, smoking policy, room service/diet, and visiting hours. Information on how to activate the Rapid Response Team has been discussed. Patient/Family are encouraged to report perceived risks to care and to ask questions if they do not understand what they are told or what they should do.
--- NOTE | 2020-11-04 08:46 | PM.IMHP ---
H&P: HPI History of Present Illness Date/Time: 11/04/20 08:46 Patient is a 55-year-old male with a past medical history asthma hyperlipidemia hypertension severe allergies obstructive sleep apnea who presents to the ER yesterday with complaints of shortness of breath with a cough. Patient stated that this all started about an hour before he got to the ED. Patient also stated that usually when this comes on he takes 1 puff of his rescue inhaler and waits to see if it helps if not any take the 2nd puff an albuterol haler and at that time usually takes an Ativan. He states that sometimes this helps however he sometimes has state further with nebulizer treatments and if that does not work then he goes to the hospital. He also stated that he is here every 1-2 months with the same symptoms. Patient stated that normally he can feel it coming on, and has asthma since he was 7 years old. He currently sees Dr. Hernández in the office every 6 months for pulmonology and asthma. Patient also stated that his medications have been switch many times over the years, he started with just a rescue inhaler and then Advair was added however with recent insurance change about a year ago he started on AirDuo and Spiriva. Patient stated that the AirDuo does not work as well as Advair. Patient stated that he does take his medications as prescribed. Patient also stated was on BuSpar which she feels does help him. Patient stated that he is unaware of how what this exacerbation came to be however he did say the last couple times he has had a bag of potatoes that went bad and put them in the trash but does not take out the trash so he feels that it might be from that. However this patient has many noted allergies including carpet, different fragrances, and other things. Patient stated that he is allergic to everything. Patient stated that yesterday he felt that he was just not getting enough air Nor could take a deep breath. He said that at home his saturation was good according to his portable pulse ox. He also stated that he does have a cough that is dry in nature but feels like there is fluid that is on top of his trachea that he can't get up. Patient also stated that he has really severe sleep apnea and has became more compliant with the BiPAP since he has gotten the nasal version. Patient also states that he does smoke daily 1-3 cigarettes and on the weekends he smokes about 2 packs. Patient also stated that he does smoke marijuana roughly 1-2 joints per week. I did educate the patient about smoking in being asthmatic however the patient stated that he has been smoking since he was 9 years old he does not think that is the problem. Patient also stated that his next appointment with pulmonology is February 19. Patient denies chest pain, palpitations, nausea, vomiting, abdominal pain, headache, weakness, fatigue, numbness and tingling, syncope, falls, lightheadedness, or dizziness. Patient also stated that he had x-rays done at the beginning of the year that did show that he might have nodules. I explained plan of care to patient patient verbalized understanding all questions were answered. At 1130 this morning. I got word that the patient had left to go get some things from his house for his stay. He did not tell anyone or report that he was leaving until he came back. Patient was unfortunately not able to remain in the hospital and would need to go back to the ED to be admitted. I did not see him on the ED tracker And the patient was discharged as leaving AMA. This also serves as discharge summary. Chief Complaint: Shortness of breath Review of Systems Review of Systems: All systems reviewed & are unremarkable except as noted in HPI and below [facility] Past Medical History Medical History (Updated 11/04/20 @ 09:35 by YENNY GusmanN-Kyree) Alcohol related seizure Allergies Anxiety Asthma COPD (chronic obstructive pulmonary disease) Hyperlipidemia Hypertension Obstructiv
--- NOTE | 2020-11-04 10:50 | PC.NURSE ---
Patient c/o not getting his morning meds. I told him I am working on getting his morning meds to him I'm waiting on pharmacy. Patient is dressed and walking around in the room.
--- NOTE | 2020-11-04 11:00 | PC.NURSE ---
Discovered patient not in room or in hallways.
--- NOTE | 2020-11-04 11:40 | PC.NURSE ---
Patient returned voicemail @ 1121, which was left by Rosemarie (housemaid), stating that he left to go home to get his CPAP & home medications since they were not being given here on time. I discussed with the patient that his medications were ordered to start tomorrow instead of today and that his nurse, Irma, was getting his medications changed to start today and that this sometimes takes time. Patient did verify with me that he still had his IV access in. I told the patient that he would have to come back here to get his IV removed and if he chose not too, that we would call the police. Patient stated that he will come back to the main entrance to have his IV removed.
--- NOTE | 2020-11-04 12:00 | PC.NURSE ---
Patient returned to the hospital to have IV dc'd. IV dc'd. Patient went home to get home meds and CPAP. He states he did not know he could not do that.
== END 2020-11-04 11:00 | disposition left against medical advice (07) ==
LOC: ANHED 04:51 → ANH3MEDSUR 10:58
PROVIDERS: Admitting Provider Internal Medicine; Emergency Provider Emergency Medicine; PCP Family Medicine; Visit Provider Internal Medicine
DX: J45.901 Unspecified asthma with (acute) exacerbation (principal); J44.9 Chronic obstructive pulmonary disease, unspecified; T78.40XA Allergy, unspecified, initial encounter; I10 Essential (primary) hypertension; E78.5 Hyperlipidemia, unspecified; G47.33 Obstructive sleep apnea (adult) (pediatric); F12.90 Cannabis use, unspecified, uncomplicated; F17.210 Nicotine dependence, cigarettes, uncomplicated; F41.9 Anxiety disorder, unspecified; Z79.51 Long term (current) use of inhaled steroids; G40.909 Epilepsy, unspecified, not intractable, without status epilepticus; Z96.89 Presence of other specified functional implants
CPT/HCPCS: 36415; 36600; 71046; 80048; 82805; 83880; 84484; 85025; 85380; 85610; 85730; 93005; 94640; 96374; 99285; A9270; G0378; G0379; J2930

== ENCOUNTER 2021-07-13 13:16 | Outpatient (RCR) | payer OTHER, SELFPAY ==
--- NOTE | 2021-04-01 11:25 | STOPEVAL ---
Thank you for referring Lane Ge to [facility].? No ST is warranted at this time due to patient presenting with WFL overall vocal quality/voice and respiratory control. Please review, sign, date and return this evaluation JACLYN. Referring Physician Date Admitting Provider: Attending Provider: Erik Dudley MD Referring Provider: *ST Outpatient Evaluation Start: 04/01/21 10:54 Freq: Status: Active Protocol: Document 04/01/21 10:00 MJB (Rec: 04/01/21 11:23 MJB [id number]) Therapy Assessment Status Assessment Status Assessment Status Evaluation Outpatient Past Medical History Past Medical History Source of Past Medical History Patient Neurological History Hx Seizures Yes Cardiovascular History Hx Chest Pain Yes Hx Hypercholesterolemia Yes Hx Hypertension Yes Hx Palpitations Yes Respiratory History Hx Asthma Yes Hx Sleep Apnea Yes: CPAP stopped 26 days ago Gastrointestinal History Hx Gastrointestinal Disorders No Significant History Musculoskeletal History Hx Arthritis Yes Hx Degenerative Disk Disease Yes: Spinal cord stimulator Hx Other Musculoskeletal Disorders Yes: spinal cord stimulator Hematological History Hx Hematological Disorders No Significant History Endocrine History Hx Endocrine Disorders No Significant History HEENT History Hx Sinus Problems Yes Hx Deviated Septum Yes Integumentary History Hx Eczema Yes Reproductive History Hx Reproductive Disorders No Significant History Psychosocial History Hx Anxiety Yes Hx Depression Yes Pain History Has Past Pain Affected Your Daily Life Yes: Currently on disability Effective Methods of Pain Control Pain pump stimulator Anesthesia History Hx Anesthesia Reactions No Significant History Evaluation Information Problem Diagnosis J38.3 other diseases of vocal cords Onset 1 1/2 years ago Subjective Information Patient reported that he has Query Text:As Reported By Patient/ been having difficulty Family breathing and hoarse vocal quality about 1 1/2 years ago. Within the past 30 days the patient reported that he has noted significant improvements in his breathing and overall vocal quality. Diagnostic Tests Other Tests For This Problem Yes: laryngoscopy with reported redness of vocal cords Pain Assessment Timing of P
== END 2021-10-11 23:59 | disposition home or self-care (01) ==
LOC: CHSST 13:16
PROVIDERS: Visit Provider Otolaryngology
DX: J38.3 Other diseases of vocal cords (principal)
CPT/HCPCS: 92524

== ENCOUNTER 2023-03-14 00:25 | Day surgery (SDC) | payer OTHER, SELFPAY ==
[2023-03-06 13:59] VITALS: BMI 39.0
--- NOTE | 2023-03-06 14:06 | PC.NURSE ---
Report to the Outpatient Waiting Room, entrance under the green pavilion located off [facility], at time 1030 on date 03/14/23. Planned Procedure Time: 1230. Time changes happen often and if your time is changed the preop area will call you the afternoon before. - You and your visitor will be asked to self-screen and do not enter if you have any COVID symptoms. - A mask is optional within the hospital at this time. Patients may have clear liquids (water, carbonated beverages, clear teas, apple juice) until 3 hours prior to surgery with a maximum of 20 ounces. - No food from midnight until time of surgery Take the following medications with a SIP of water the morning of surgery: INHALER, KEPPRA DO NOT STOP ANY OF YOUR OTHER PRESCRIPTION MEDICATIONS PRIOR TO SURGERY ?EXCEPT THE FOLLOWING Medications to discontinue per physician: N/A Date to take last dose: N/A Please no make-up, nail kittitian, hairspray, perfume, deodorant, or body powder the day of surgery. No jewelry (including any body piercings) or valuables the day of surgery, leave them at home. Please take a shower or bath the night before, or the morning of, surgery with an antibacterial soap. Wear comfortable, loose fitting clothing. - Jewelry must be removed prior to entering the operating room. Rings and piercings that are not removed may be cut off. - The hospital will not accept responsibility for valuables. - Please leave all valuables, including medications, at home the day of surgery. If you are going home after surgery, a licensed tow car driver must drive you home. - NO public transportation without another adult if you receive anesthesia. - We recommend that an adult stay with you for 24 hours following discharge. - We also recommend that you do not drive, make important decision, drink alcoholic beverages, or take any drugs that were not prescribed by your health care provider for at least 24 hours after your discharge time. Follow any additional instructions given to you from your surgeon. If you or anyone in your household have experienced Covid symptoms in the past week, please notify your surgeon or the nurse liaison at the phone number below for possible testing. Telephone instructions given to JAMIN LANDON CREWS and asked if any additional questions and then verbalized understanding. Patient advised to call surgeon office or pre surgery nurse liaison [phone] if any additional questions.
--- NOTE | 2023-03-13 16:52 | PM.IMHP ---
H&P: HPI History of Present Illness Date/Time: 03/13/23 16:52 Chief Complaint: shoulder lipoma neck cyst Narrative: planned procedure Review of Systems Review of Systems: All systems reviewed & are unremarkable except as noted in HPI and below [facility] Past Medical History Medical History Alcohol related seizure Allergies Anxiety Asthma COPD (chronic obstructive pulmonary disease) Hyperlipidemia Hypertension Obstructive sleep apnea Palpitation Surgical History Surgical History History of appendectomy Status post insertion of spinal cord stimulator Family History Family History Father Carcinoma of colon Heart disease Hypertension Alcoholism Mother Diabetes mellitus Hypertension Thyroid disorder Sibling Heart disease Brother Acute myocardial infarction Alcoholism Depression Other Heart disease cousin had a cabg Social History Social History Social History: Patient would like to be a full code and for his brother Armando to be his surrogate while he is in the hospital. Patient also states he does not have any pets. And lives alone. Smoking packs per day: 0.5 Smoking cigarettes per day: 10.0 Years smoked: 40 Smoking pack-years: 20.00 Smoking status: Former smoker Tobacco type: cigarettes Smoking end date: 10/10/20 Additional smoking assessment comments: Smokes on weekends and sometimes during the day. Alcohol intake: current Drinks per week: 18 Alcohol use details: 18 PACK/MONTH Substance use: current Substance use type: marijuana Other substance usage details: 1-3 joints per week Last use: MAY 2022 Living arrangements: alone Occupation/Education: unemployed Additional occupation/education comments: [employer] Gender identity (if verbalized by the patient): Male Sexual Orientation (if Verbalized by the Patient): Straight or Heterosexual Spiritual care concerns: No Agree to blood products: Yes Meds Home Medications and Allergies Home Medications Medication Instructions Recorded Confirmed Type montelukast 10 mg tablet 10 mg PO HS 02/19/20 03/06/23 History loratadine 10 mg tablet (Claritin) 10 mg PO DAILY 11/04/20 03/06/23 History levetiracetam 500 mg tablet 500 mg PO Q12H 07/21/21 03/06/23 History albuterol sulfate 90 mcg/actuation 2 inh inhalation Q6H PRN 08/30/22 03/06/23 History aerosol inhaler (Ventolin HFA) Bronchospasm budesonide-formoterol HFA 160 2 puff inhalation Q12H 08/30/22 03/06/23 History mcg-4.5 mcg/actuation aerosol inhaler (Symbicort) omeprazole 20 mg capsule,delayed 20 mg PO HS 09/27/22 03/06/23 History release tamsulosin 0.4 mg capsule 0.4 mg PO DAILY 01/19/23 03/06/23 History lorazepam 2 mg tablet 2 mg PO DAILY PRN Anxiety 03/06/23 03/06/23 History Allergies Allergy/AdvReac Type Severity Reaction Status Date / Time cephalexin Allergy Severe Nausea and Verified 03/06/23 13:57 Vomiting amlodipine AdvReac Swelling Verified 03/06/23 13:57 bupropion [From Wellbutrin] AdvReac Nausea and Verified 03/06/23 13:57 Vomiting lisinopril AdvReac Cough Verified 03/06/23 13:57 sertraline AdvReac Nausea and Verified 03/06/23 13:57 Vomiting venlafaxine [From Effexor] AdvReac Unknown Verified 03/06/23 13:57 Exam Narrative: shoulder lipoma nexus neck cyst Assessment and Plan Assessment and plan (1) Cyst of neck: Status: Acute Assessment and Plan: plan OR for excision of midline neck cyst as well as left shoulder lipoma. Risks were discussed including bleeding infection postoperative infection shoulder drop damage to thoracic duct need for further procedures need for time off work time off school inherent risk of narcoti
[2023-03-14] VITALS (8 sets, daily range): BP systolic 114–149; BP diastolic 72–93; PULSE 64–90; RESP 12–20; TEMP 36.5–36.6; O2SAT 94–99
--- NOTE | 2023-03-14 07:20 | WPDHPUPDATE1 ---
History and Physical Update Update Date/Time: 03/14/23 07:20 History and Physical has been reviewed, including an updated exam of the patient. There are NO changes in the patient's condition. Risks, benefits, and alternatives have been discussed and questions answered. Patient agrees to proceed with procedure.
[2023-03-14] MEDS: LACTATED RINGERS 1,000 ML 30 ML IV CONT ×2 (11:30→15:59)
--- NOTE | 2023-03-14 12:38 | WPDANESEPPF ---
Anes - Initial Pre Proc Eval Procedure: Operation Date: 03/14/23 12:30 Proposed Procedures p Excision Midline Neck Mass, Excision of Lipoma Left Shoulder - Erik Dudley MD Date/Time: 03/14/23 12:38 Surgeon: Erik Dudley MD Pre Op Diagnosis: neck mass (2cm), left shoulder lipoma (10cm) Patient Data Age: 58 Gender: M Height: 1.8 m Weight: 126.8 kg Last Vital Signs Temp 36.5 C 03/14/23 10:50 Pulse 70 03/14/23 10:50 Resp 20 03/14/23 10:50 BP 142/85 H 03/14/23 10:50 Pulse Ox 98 03/14/23 10:50 O2 Del Method Room Air 03/14/23 10:50 Allergies Allergy/AdvReac Type Severity Reaction Status Date / Time cephalexin Allergy Severe Extreme Verified 03/14/23 10:50 hypotension/Nausea and Vomiting amlodipine AdvReac Intermediate swelling Verified 03/14/23 10:50 of feet bupropion [From Wellbutrin] AdvReac Mild Nausea and Verified 03/14/23 10:50 Vomiting lisinopril AdvReac Mild Cough Verified 03/14/23 10:50 sertraline AdvReac Mild Nausea and Verified 03/14/23 10:50 Vomiting venlafaxine [From Effexor] AdvReac Mild lightheaded/cold Verified 03/14/23 10:50 sweats Home Medications Medication Instructions Recorded Confirmed Type montelukast 10 mg tablet 10 mg PO HS 02/19/20 03/14/23 History loratadine 10 mg tablet (Claritin) 10 mg PO DAILY 11/04/20 03/14/23 History levetiracetam 500 mg tablet 500 mg PO Q12H 07/21/21 03/14/23 History albuterol sulfate 90 mcg/actuation 2 inh inhalation Q6H PRN 08/30/22 03/14/23 History aerosol inhaler (Ventolin HFA) Bronchospasm budesonide-formoterol HFA 160 2 puff inhalation Q12H 08/30/22 03/14/23 History mcg-4.5 mcg/actuation aerosol inhaler (Symbicort) omeprazole 20 mg capsule,delayed 20 mg PO HS 09/27/22 03/14/23 History release tamsulosin 0.4 mg capsule 0.4 mg PO DAILY 01/19/23 03/14/23 History lorazepam 2 mg tablet 2 mg PO DAILY PRN Anxiety 03/06/23 03/14/23 History losartan 100 mg tablet 100 mg PO DAILY 03/14/23 03/14/23 History Patient hx anesthesia problems: none Family hx anesthesia problems: none Results Review: All pre-operative results and documents have been reviewed as part of the pre-operative evaluation. [facility] Past Medical History Medical History Alcohol related seizure Allergies Anxiety Asthma COPD (chronic obstructive pulmonary disease) Hyperlipidemia Hypertension Obstructive sleep apnea Palpitation Surgical History Surgical History History of appendectomy Status post insertion of spinal cord stimulator Family History Family History Father Carcinoma of colon Heart disease Hypertension Alcoholism Mother Diabetes mellitus Hypertension Thyroid disorder Sibling Heart disease Brother Acute myocardial infarction Alcoholism Depression Other Heart disease cousin had a cabg Social History Social History Social History: Patient would like to be a full code and for his brother Armando to be his surrogate while he is in the hospital. Patient also states he does not have any pets. And lives alone. Smoking packs per day: 0.5 Smoking cigarettes per day: 10.0 Years smoked: 40 Smoking pack-years: 20.00 Smoking status: Former smoker Tobacco type: cigarettes Smoking end date: 10/10/20 Additional smoking assessment comments: Smokes on weekends and sometimes during the day. Alcohol intake: current Drinks per week: 18 Alcohol use details: 18 PACK/MONTH Substance use: current Substance use type: marijuana Other substance usage details: 1-3 joints per week Last use: MAY 2022 Living arrangements: alone Occupation/Education: unemployed Additional occupation/education comments: [employer] Gender identity (if verbalized by
[2023-03-14] MEDS: LIDO 1%/EPINEPHRINE 1:100,000 20 ML VIAL INFILTRATE (14:45)
--- NOTE | 2023-03-14 16:16 | W.PM.PROC2 ---
Procedure Note - Detailed Date of Procedure 03/14/23 Pre-op Diagnosis neck mass (3cm), left shoulder lipoma (15cm) Post-op Diagnosis Same Procedure Performed Decision of left shoulder lesion excision midline neck lesion Surgeon Erik Dudley MD Anesthesia General Indications See above Findings A gelatinous fish skin appearing midline neck lesion completely removed about for 3-4 cm. Left shoulder lesion consistent with lipoma per 15 cm x 8 cm Description of Procedure Patient identified consent verified preop. Patient brought operating. Time-out performed. General anesthesia induced endotracheal tube secured airway. Patient prepped draped positioned procedure confirmed. Second time-out performed. 1 cc 1% lidocaine injected over a midline neck cyst which measures about 3 cm deep to the skin. Fifteen blade utilized to cut the skin. Any bleeding vessels controlled with bipolar electrocautery at a setting of 10. Lesion removed and measured about 3 cm across. It is not sure what this represents it was a gelatinous type lesion almost fish scaly fish skin like. Sent for pathologic analysis. Wound copiously irrigated closed the deep layer with interrupted sorry with 3-0 Vicryl interrupted stitches. Skin glue placed over the skin. Total 3 cc 1% lidocaine 1 100,000 parts epinephrine injected over the midline sorry over the left shoulder lesion following relaxed skin tension line. Approximately 15 cm incision made dissected down to the lesion lesion was dissected around with blunt dissection and tenotomy scissors. Any bleeding vessels controlled with bipolar electrocautery. Lesion was consistent with very large lipoma measuring about 15 x 8 cm. Wound then copiously irrigated with sterile normal saline. Deep layers closed with 3 0 Vicryl interrupted skin closed with a running 4-0 nylon suture. A drip prior to closure a drain was placed 7 Kinyarwanda suction to hold down the skin given the size of the defect. Good cosmetic appearance. Following surgery the patient was able to move his arm completely and tracking shoulder. Patient had no sensation defects either. The patient given Anesthesiology. Total blood loss 5 cc. I performed all dictated portions procedure. No complications. Estimated Blood Loss 5 Drains Yes Packing No Pathology Yes Complications No immediate complications Condition Stable Disposition PACU [facility] Billing Surgery - Charge Forward: Surgery Billing
--- NOTE | 2023-03-14 16:33 | SUR.PHASEI ---
0044 - dr. root at bedside
== END 2023-03-14 17:50 | disposition home or self-care (01) ==
PROVIDERS: PCP Family Medicine; Visit Provider Otolaryngology
PROC: (CPT 24071; principal; 2023-03-14 12:30)
DX: D17.22 Benign lipomatous neoplasm of skin and subcutaneous tissue of left arm (principal); R22.1 Localized swelling, mass and lump, neck; J44.9 Chronic obstructive pulmonary disease, unspecified; I10 Essential (primary) hypertension; E78.5 Hyperlipidemia, unspecified; G47.33 Obstructive sleep apnea (adult) (pediatric); F41.9 Anxiety disorder, unspecified; F17.210 Nicotine dependence, cigarettes, uncomplicated; F12.90 Cannabis use, unspecified, uncomplicated; E66.9 Obesity, unspecified; Z68.39 Body mass index [BMI] 39.0-39.9, adult; Z79.51 Long term (current) use of inhaled steroids
CPT/HCPCS: 24071; 21552; 88304; 88305; A9270; J1100; J2250; J2405; J2704; J3010; J7120

== ENCOUNTER 2023-10-09 12:47 | Outpatient (CLI) | payer OTHER, SELFPAY | END 2023-10-09 12:48 | disposition home or self-care (01) | LOC: ANHAUDASC 12:48 | PROVIDERS: PCP Family Medicine; Visit Provider Otolaryngology | DX: H93.13 Tinnitus, bilateral (principal); H90.3 Sensorineural hearing loss, bilateral | CPT/HCPCS: 92557; 92567 ==

== ENCOUNTER → 2024-04-08 10:11 | Outpatient (REF) | payer OTHER, SELFPAY | LOC: ANHLAB 10:11 | PROVIDERS: PCP Family Medicine; Visit Provider Plastic Surgery | DX: R22.31 Localized swelling, mass and lump, right upper limb (principal) | CPT/HCPCS: 88305 ==